=== PATIENT | female | born 1990 | race Two or more races ===

== ENCOUNTER 2024-09-17 08:42 | Emergency (ER) | payer MEDICAID, SELFPAY ==
[2024-09-17 08:43] VITALS: BMI 29.1
[2024-09-17 08:58] VITALS: BP 117/78; PULSE 79; RESP 18; TEMP 36.8; O2SAT 99
--- NOTE | 2024-09-17 09:01 | XR_ITS ---
Examination: CT abdomen and pelvis without contrast. Coronal 3-D reconstructions. Sagittal 2-D reconstructions. Date and time of exam:September 17, 2024 1343 hours INDICATIONS: Bilateral flank pain nausea vomiting 3 days CTDI: vol (mGy): 9.77 DLP: (mGycm): 584 Technique: Axial images of the abdomen have been obtained, 3 mm slice thickness Intravenous contrast material has not been administered. Low dose protocols were performed. One or more of the following dose reduction techniques were used; automated exposure control, adjustment of the mA and/or KV according to patient size, use of iterative reconstruction technique. Findings: No focal liver or splenic lesions Absent gallbladder No pancreatic mass Tiny 1 to 2 mm bilateral renal calculi No hydronephrosis or ureteral calculi Aorta normal size Absent appendix No bowel obstruction Anteverted uterus No bladder mass or bladder calculi Advanced degenerative disc disease L5-S1 IMPRESSION: Bilateral tiny nonobstructing renal calculi No hydronephrosis or ureteral calculi No bladder mass or bladder calculi
--- NOTE | 2024-09-17 09:02 | PD.EDRME ---
Rapid Medical Screening Exam RME Arrival date/time: 09/17/24 08:42 34-year-old female with a history of a cholecystectomy presents to the emergency room with a chief complaint of bilateral flank pain, right sided upper and lower 10 out of 10 abdominal pain, nausea, diarrhea, vomiting x 4 days I have greeted and performed a focused initial assessment of this patient. A comprehensive ED assessment and evaluation of the patient, analysis of all test results, and completion of the medical decision making process will be conducted by additional ED providers. Chief Complaint: Nausea/Vomiting/Diarrhea Vital signs: Vital Signs Temperature 98.2 F 09/17/24 08:58 Pulse Rate 79 09/17/24 08:58 Respiratory Rate 18 09/17/24 08:58 Blood Pressure 117/78 09/17/24 08:58 Pulse Oximetry (%) 99 09/17/24 08:58 Oxygen Delivery Method Room Air 09/17/24 08:58 Vital signs reviewed by provider: Yes
[2024-09-17] MEDS: MG HYD/AL HYD/SIME (Maalox Reg) SUSP 30 ML UDC PO (09:15)
[2024-09-17] MEDS: ONDANSETRON ODT 4 MG TABRAP PO (09:15)
[2024-09-17 09:36] LABS: Basophils # (Auto) 0.1 Thou/mm3 (0.0-0.2); Basophils % (Auto) 1 % (0-2.5); Eosinophils # (Auto) 0.8 Thou/mm3 (0.0-0.5); Eosinophils % (Auto) 10 % (0-10); Hemoglobin 12.3 g/dL (12.0-16.0); Immature Granulocytes % (Auto) 1 % (0-0); Immature Granulocytes Auto 0.04 Thou/mm3 (0.00-0.00); Lymphocytes # (Auto) 2.7 Thou/mm3 (1.0-4.8); Lymphocytes % (Auto) 36 % (10-50); Mean Corpuscular HGB Conc 33.2 g/dl (31.0-37.0); Mean Corpuscular Hemoglobin 29.6 pg (25.0-35.0); Mean Corpuscular Volume 89 fL (80-100); Monocytes # (Auto) 0.8 Thou/mm3 (0.0-0.8); Monocytes % (Auto) 10 % (0-12); Neutrophils # (Auto) 3.3 Thou/mm3 (1.8-7.7); Neutrophils % (Auto) 43 % (37-80); Nucleated Red Blood Cell % 0 /100 WBC (0); Platelet Count 412 Thou/mm3 (140-440); RDW Standard Deviation 42.7 fL (36.4-46.3); Red Blood Count 4.16 Miln/mm3 (4.00-5.20); White Blood Count 7.7 Thou/mm3 (3.6-11.0)
[2024-09-17 09:59] LABS: Alanine Aminotransferase 11 U/L (10-49); Albumin, Serum 3.9 gm/dL (3.5-5.0); Alkaline Phosphatase 37 U/L (46-116); Anion Gap 6 (7-16); Aspartate Amino Transferase 13 U/L (0-34); BUN/Creatinine Ratio 15 Ratio (12-20); Bilirubin,Total 0.3 mg/dL (0.3-1.2); Blood Urea Nitrogen 9 mg/dL (9-23); Calcium 8.7 mg/dL (8.3-10.6); Calcium (Corrected) 8.8 mg/dL (8.5-10.1); Carbon Dioxide 30.4 mMol/L (20.0-31.0); Chloride 108 mMol/L (98-107); Creatinine (Component) 0.6 mg/dL (0.6-1.3); Estimated Creatinine Clearance 137.6 mL/min (>60); Glucose 86 mg/dL (74-106); Lipase 52 U/L (12-53); Osmolality,Calculated 284 (275-295); Potassium 4.1 mMol/L (3.4-5.1); Sodium 144 mMol/L (136-145); Total Protein 5.9 gm/dL (5.7-8.2); eGFR > 60 See Note
--- NOTE | 2024-09-17 12:16 | PD.EDABDPN ---
ED Abdominal Pain RME/HPI General Chief Complaint: Nausea/Vomiting/Diarrhea Stated complaint: N/V X3DAYS WITH ABD PAIN & BACK PAIN Time seen by provider: 09/17/24 11:22 Arrival date/time: 09/17/24 08:42 This is a case of 34-year-old female with a history of a cholecystectomy presents to the emergency room with a chief complaint of bilateral flank pain, right sided upper and lower 10 out of 10 abdominal pain, nausea, diarrhea, vomiting x 4 days Limitations: no limitations RME / HPI RME / HPI narrative: 09/17/24 08:42 34-year-old female with a history of a cholecystectomy presents to the emergency room with a chief complaint of bilateral flank pain, right sided upper and lower 10 out of 10 abdominal pain, nausea, diarrhea, vomiting x 4 days I have greeted and performed a focused initial assessment of this patient. A comprehensive ED assessment and evaluation of the patient, analysis of all test results, and completion of the medical decision making process will be conducted by additional ED providers. Related Data Previous Rx's ?Medication ?Instructions ?Recorded nitrofurantoin 100 mg PO BID #14 caps 06/02/18 monohydrate/macrocrystals 100 mg capsule (Macrobid) ibuprofen 800 mg tablet 800 mg PO Q8H PRN pain #20 tabs 09/17/24 ondansetron 4 mg disintegrating 4 mg PO Q8H PRN nausea and 09/17/24 tablet vomiting #20 tabs sulfamethoxazole 800 1 tab PO Q12H #20 tabs 09/17/24 mg-trimethoprim 160 mg tablet (Bactrim DS) tamsulosin 0.4 mg capsule (Flomax) 0.4 mg PO QDAY #7 caps 09/17/24 Allergies Allergy/AdvReac Type Severity Reaction Status Date / Time cephalexin Allergy Severe RASH Verified 09/17/24 08:45 Review of Systems Review of Systems Systems Reviewed: All systems reviewed, normal except as documented Constitutional Constitutional: Reports system reviewed and no additional complaints, except as documented and Reports as per HPI Cardiovascular Cardiovascular: Reports system reviewed and no additional complaints, except as documented, Reports as per HPI, Denies chest pain, Denies chest pain with activity and Denies dyspnea Respiratory Respiratory: Reports system reviewed and no additional complaints, except as documented, Reports as per HPI, Denies chest congestion, Denies cough and Denies dyspnea Gastrointestinal Gastrointestinal: Reports system reviewed and no additional complaints, except as documented, Reports as per HPI, Reports abdominal pain, Denies constipation, Denies cramping, Reports diarrhea, Reports nausea and Reports vomiting Genitourinary Genitourinary: Reports system reviewed and no additional complaints, except as documented, Reports as per HPI, Denies dysuria and Denies nocturia Musculoskeletal Musculoskeletal: Reports system reviewed and no additional complaints, except as documented and Reports as per HPI Neurologic Neurologic: Reports system reviewed and no additional complaints, except as documented and Reports as per HPI Past Medical History Past Medical History NEUROLOGIC: Negative Neurological Disorders CARDIAC: Positive Cardiac Disorders and Hypertension; Negative Congestive Heart Failure RESPIRATORY: Positive Asthma and Sleep Apnea; Negative Chronic Obstructive Pulmonary Disease (COPD) GASTROINTESTINAL: Positive Gastrointestinal Disorders and Obesity; Negative Hepatitis or Colorectal Cancer GENITOURINARY: Negative Genitourinary Disorders, Renal Disease or Prostate Cancer REPRODUCTIVE: Negative Breast Cancer or Testicular Cancer MUSCULOSKELETAL: Negative Musculoskeletal Disorders or Bone Cancer ENDOCRINE: Negative Endocrine Disorders, Diabetes Mellitus Type 1 or Diabetes Mellitus Type 2 HEMATOLOGIC: Negative Blood Disorders OTHER HISTORY: Negative Hospitalization, Autoimmune Disease, Down Syndrome, Developmental Delay, Shingles, Falls, Blood Transfusions, Blood Transfusion Reaction, Anesthesia Reactions, Organ Transplant, Chemotherapy, Radiation Therapy, Hyperbaric Therapy, MRSA, VRSA, Vancomycin-Resistant Enterococci, Human Immunodeficiency Virus (HIV), Chicken Pox, Measles, Mumps, Rubella ([place] Measles), Pertussis, Clostridium Difficile, Breast Cancer, Cervical Cancer, Colorectal Cancer, Lung Cancer, Ovarian Cancer, Prostate Cancer or Testicular Cancer Family History FAMILY HISTORY: Positive Family Surgery; Negative Family Cardiac Disorders, Family Cancer or Family Anesthesia Reaction Surgical History SURGICAL: Positive Abdominal Surgery and Section; Negative Organ Transplant Social History SMOKING STATUS: Never smoker SECOND HAND EXPOSURE: No ED Exam General Limitations: Present no limitations General appearance: Present alert and in no apparent distress; Absent appears intoxicated, anxious or lethargic Head Head exam: Present atraumatic, normocephalic and normal inspection Eye Eye exam: Present normal appearance, PERRL and EOMI ENT ENT exam: Present normal exam, normal oropharynx and mucous membranes moist Neck Neck exam: Present normal inspection, full ROM and trachea midline Chest Chest inspection: Present normal inspection and symmetric chest wall rise Respiratory Respiratory exam: Present normal lung sounds bilaterally; Absent respiratory distress, wheezes, stridor or prolonged expiratory phase Cardiovascular Cardiovascular exam: Present regular rate, normal rhythm and normal heart sounds; Absent systolic murmur or diastolic murmur Abdominal Exam Abdominal exam: Present soft and normal bowel sounds; Absent distention, guarding, rebound, rigidity, diminished bowel sounds, hyperactive bowel sounds, hypoactive bowel sounds, organomegaly, trauma, incision, psoas sign, obturator sign, heel tap sign, Jefferson's sign, Rovsing's sign, tenderness at McBurney's Point, ascites, mass, bruit, pulsatile mass, hernia, scar or other Abdominal tenderness: Present RUQ, LUQ and mild External exam: Present normal external exam and other (no cva tenderness) Extremities Exam Extremities exam: Present normal inspection and full ROM Back Exam Back exam: Present normal inspection and full ROM Neurological Exam Neurological exam: Present alert, oriented X3, CN II-XII intact, normal gait and reflexes normal; Absent motor sensory deficit Psychiatric Psychiatric exam: Present normal affect and normal mood Skin Skin exam: Present warm, dry, intact and normal color Course Quality Measures none Orders Category Date Time Status IV [Insert IV] NOW Care 09/17/24 13:[address] abdomen pelvis wo con Stat Exams 09/17/24 09:01 Completed CBC Stat Lab 09/17/24 09:19 Completed CMP [Comprehensive Metabolic Panel] Stat Lab 09/17/24 09:19 Completed Drug Screen,Urine Stat Lab 09/17/24 13:01 Completed HCG Qualitative,Urine Stat Lab 09/17/24 13:01 Completed Lipase Stat Lab 09/17/24 09:19 Completed UA [Urinalysis] Stat Lab 09/17/24 13:01 Completed Urine Culture Stat Lab 09/17/24 13:01 Received HYDROcodone*/APAP 5/325 [Baxter 5/325] Med 09/17/24 09:02 Discontinued 1 tab PO X1 ONE Ketorolac Inj [Toradol Inj] Med 09/17/24 15:10 Discontinued 30 mg IVP X1 ONE Morphine Inj Med 09/17/24 13:54 Active 4 mg IVP Q1H PRN Morphine Inj Med 09/17/24 11:37 Discontinued 5 mg IM X1 ONE Ondansetron Inj [Zofran Inj] Med 09/17/24 11:37 Discontinued 4 mg IVP X1 ONE Ondansetron Odt [Zofran Odt] Med 09/17/24 09:02 Discontinued 4 mg PO X1 ONE Ringers Lactated 500 ml [Lactated Ringers] 500 ml Med 09/17/24 11:37 Discontinued IV 999 mls/hr mg Hyd/Al Hyd/Tamra Susp [Maalox Susp] Med 09/17/24 09:02 Discontinued 30 ml PO X1 ONE Vital Signs Vital signs: Vital Signs Temperature 98.2 F 09/17/24 08:58 Pulse Rate 79 09/17/24 08:58 Respiratory Rate 18 09/17/24 08:58 Blood Pressure 117/78 09/17/24 08:58 Pulse Oximetry (%) 99 09/17/24 08:58 Oxygen Delivery Method Room Air 09/17/24 08:58 Oxygen saturation room air wnl Abdominal Pain MDM MDM Narrative MDM Narrative:: This is a case of 34-year-old female with a history of a cholecystectomy presents to the emergency room with a chief complaint of bilateral flank pain, right sided upper and lower 10 out of 10 abdominal pain, nausea, diarrhea, vomiting x 4 days Physical examination patient is awake alert oriented not in distress nontoxic looking well-hydrated well-nourished with excellent skin turgor vital signs stable BP stable not tachycardic not tachypneic afebrile and nonhypoxic Abdominal exam is benign mild tenderness in the right upper and left upper quadrant no guarding no rebound no rigidity negative CVA tenderness negative psoas 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 Rovsing's negative McBurney's negative Jefferson sign negative CVA tenderness Patient blood test showed no leukocytosis no anemia kidney and liver function is normal no electrolyte imbalance lipase normal urinalysis showed WBC in the urine thus patient will be treated as urinary tract infection CT scan showed a small stone on the kidney suggestive of kidney stone nonobstructive At this point I do not think patient is having sepsis nor dehydration patient was given a bolus of normal saline morphine and Toradol for pain and Zofran for vomiting patient was reassessed abdominal exam is benign nonsurgical patient verbalized the improvement of symptoms no recurrence of vomiting I discussed with the patient the importance to see a urologist for further evaluation and treatment of kidney stone at this point the kidney stone is not infected WBC is normal Patient was discharged with Bactrim for UTI ibuprofen for pain and Flomax for kidney stone and Zofran for vomiting Patient was discharged with comfortable condition walking with stable gait. Patient verbalized no further complains explained diagnosis and answered patient question. Patient is comfortable with the proposed management plan including the need to follow up with his/her primary care physician and any specialist if applicable Discussed patient for any urgent condition or worsening sx, He/She needed to go to emergency room immediately or call 911. Patient acknowledge the responsibility to follow up as instructed and to monitor her/his symptoms. For any persistence of the symptoms for more than 3-5 days return precaution advised. Discussed the result of the test and was given printed discharge instruction Patient data External records reviewed:: [facility] previous records Clinical information provided by:: patient Social determinants that could affect healthcare access:: none Patient has the following chronic illnesses:: none How is presenting disease/condition affected by chronic disease/condition?: no chronic disease Evaluation data The following diagnostics were reviewed and interpreted by me:: lab results and radiology exam(s) Lab and/or radiology exams considered but not ordered:: reveiwed Interpretation Summary: reviewed Medications / Prescriptions Medications or Prescriptions considered but not ordered:: given Medication administrations:: Medication Administration History Morphine Sulfate (Morphine Sulf Inj 10 Mg/Ml Vial) 4 mg IVP Q1H PRN PRN Reason: ABDOMINAL CRAMPING Last Admin: 09/17/24 14:00 Dose: 4 mg Documented By: RACHEL Discontinued Medications Hydrocodone Bitart/Acetaminophen (Hydrocodone/Apap 5/325 Tablet) 1 tab PO X1 ONE Stop: 09/17/24 09:03 Last Admin: 09/17/24 09:23 Dose: Not Given Documented By: HENNA Non-Admin Reason: Patient Refused Al Hydrox/Mg Hydrox/Simethicone (Mg Hyd/Al Hyd/Tamra (Maalox Reg) Susp 30 Ml Udc) 30 ml PO X1 ONE Stop: 09/17/24 09:03 Last Admin: 09/17/24 09:15 Dose: 30 ml Documented By: HENNA Lactated Ringer's (Lactated Ringers) 500 mls @ 999 mls/hr IV .Q31M ONE Stop: 09/17/24 12:07 Last Infusion: 09/17/24 15:06 Dose: Infused Documented By: Admin: 09/17/24 14:21 Dose: 999 mls/hr Documented By: RACHEL Comments: unable to scan . no 500 ml bag available per distribution Ketorolac Tromethamine (Ketorolac Inj 30 Mg/Ml Vial) 30 mg IVP X1 ONE Stop: 09/17/24 15:11 Morphine Sulfate (Morphine Sulf Inj 10 Mg/Ml Vial) 5 mg IM X1 ONE Stop: 09/17/24 11:38 Last Admin: 09/17/24 14:47 Dose: Not Given Documented By: RACHEL Non-Admin Reason: Cancelled by Provider Ondansetron HCl (Ondansetron Odt 4 Mg Tabrap) 4 mg PO X1 ONE; Protocol Stop: 09/17/24 09:03 Last Admin: 09/17/24 09:15 Dose: 4 mg Documented By: HENNA Ondansetron HCl (Ondansetron Inj 2 Mg/Ml Inj 2 Ml) 4 mg IVP X1 ONE; Protocol Stop: 09/17/24 11:38 Last Admin: 09/17/24 14:00 Dose: 4 mg Documented By: RACHEL given Consultations Consultation(s) initiated? (list below): No Diagnosis Differential diagnosis abdominal pain: abdominal pain, acute appendicitis, calculus of kidney, constipation, diverticulitis and gastroenteritis Most likely diagnosis given after review of the tests above:: kidney stone Admission Indicated Admission indicated?: not indicated Explain why admission is indicated or not indicated:: not indicated Admission Request Was there a request for admission?: No Disposition Plan Disposition Plan: Discharge Discharge Attestation Discharge Attestation: The patient and all family members were given an opportunity to ask questions and understood the discharge instructions. Discharge instructions specifically effects, indications for sooner follow up or return to the emergency department, and the expected course of current diagnosis. Patient condition: Stable Discharge Plan Plan Patient Disposition: HOME (Self Care) Prescriptions/Referrals Prescriptions/Med Rec: New sulfamethoxazole-trimethoprim [Bactrim DS] 800-160 mg tablet 1 tab PO Q12H Qty: 20 0RF tamsulosin [Flomax] 0.4 mg capsule 0.4 mg PO QDAY Qty: 7 0RF ibuprofen 800 mg tablet 800 mg PO Q8H PRN (Reason: pain) Qty: 20 0RF ondansetron 4 mg tablet,disintegrating 4 mg PO Q8H PRN (Reason: nausea and vomiting) Qty: 20 0RF No Action nitrofurantoin monohyd/m-cryst [Macrobid] 100 mg capsule 100 mg PO BID Qty: 14 0RF Rx Instructions: must administer with a meal/food Referrals: Jack Glover MD [Physician] - In 1 week (for further evaluation and tx of kidney stones) Alphonso Robins [Primary Care Provider] - In 1 week Problem List Clinical Impression: Nephrolithiasis, Urinary tract infection Patient/Caregiver Discharge Instructions Education Materials: Urinary Tract Infections in Women, Identifying Kidney Stones Additional Instructions: Follow-up with your primary care physician in 2 days for reevaluation and to be referred to urologist for further evaluation and treatment of kidney stone increase water intake keep hydrated finish the course of antibiotic worsening symptoms or any emergent concern or recurrence of the symptoms to return to the emergency room immediately or call [phone] Print Language: Wallisian Stand Alone Forms: Isabel Award Info., Patient Portal Info Letter PA/REGINA Supervising Physician PA/REGINA Supervising Physician: dr powers
[2024-09-17 13:27] LABS: Collection Type, Urine Clean Catch
[2024-09-17 13:37] LABS: HCG Qualitative,Urine Negative
[2024-09-17 13:41] LABS: Amorphous Crystals,Urine Present (Absent); Bacteria,Urine Rare; Bilirubin,Urine Negative (Negative); Blood,Urine Negative (Negative); Color,Urine Lt-Yellow (Lt Yel-Yel); Glucose, Urine Negative (Negative); Ketones,Urine Negative (Negative); Leukocyte Esterase,Urine Positive (Negative); Nitrite,Urine Negative (Negative); Protein,Urine Negative (Neg - Trace); RBC,Urine 5 /hpf (0-3); Specific Gravity,Urine 1.029 (1.001-1.035); Squamous Epithelial Cell,Urine 28 /hpf (0-5); Urobilinogen,Urine Negative mg/dL (0.0-1.0); WBC,Urine 6 /hpf (0-5)
[2024-09-17] MEDS: MORPHINE SULF INJ 10 MG/ML VIAL 4 MG IVP (14:00)
[2024-09-17] MEDS: ONDANSETRON INJ 2 MG/ML INJ 2 ML 4 MG IVP (14:00)
[2024-09-17 14:04] LABS: Clarity,Urine Hazy (Clear/Hazy)
[2024-09-17] MEDS: RINGERS LACTATED 500 ML 500 ML 999 ML IV (14:21)
[2024-09-17 14:35] VITALS: BP 111/71; PULSE 70; RESP 18; TEMP 36.7; O2SAT 98
[2024-09-17 15:02] LABS: Amphetamine/Methamp Scrn,U Negative (Negative); Barbiturate Screen,Urine Negative (Negative); Benzodiazepines Screen,Urine Negative (Negative); Benzoylecgonine Screen, Ur Negative (Negative); Fentanyl Screen,Urine Negative (Negative); Opiate Screen,Urine Positive (Negative); THC Screen,Urine Negative (Negative)
[2024-09-17] MEDS: KETOROLAC INJ 30 MG/ML VIAL IVP (15:23)
[2024-09-17 15:33] VITALS: BP 120/78; PULSE 78; RESP 18; TEMP 36.7; O2SAT 99
== END 2024-09-17 15:35 | disposition home or self-care (01) ==
PROVIDERS: Nurse Practitioner Family; Emergency Provider Emergency Medicine; PCP Family Medicine
DX: N39.0 Urinary tract infection, site not specified (principal); J45.909 Unspecified asthma, uncomplicated; Z90.49 Acquired absence of other specified parts of digestive tract
CPT/HCPCS: 36415; 74176; 80053; 80307; 81001; 81025; 83690; 85025; 87086; 96361; 96374; 96375; 99284; J1885; J2270; J2405; J7120; Q0162; A9270

== ENCOUNTER 2024-09-26 06:47 | Emergency (ER) | payer MEDICAID, SELFPAY ==
[2024-09-26 06:48] VITALS: BMI 28.3
[2024-09-26 06:59] VITALS: BP 117/76; PULSE 89; RESP 18; TEMP 36.7; O2SAT 99; BMI 30.9
--- NOTE | 2024-09-26 07:08 | PD.EDRME ---
Rapid Medical Screening Exam [facility] Arrival date/time: 09/26/24 06:47 34-year-old female with no known medical history presents to the emergency room with a chief complaint of right flank pain, nausea, bilateral lower abdominal pain x 3 days. Patient states she was seen here and discharged with a UTI and kidney stones 2 weeks ago. She has taken medication and her symptoms have not gone away. I have greeted and performed a focused initial assessment of this patient. A comprehensive ED assessment and evaluation of the patient, analysis of all test results, and completion of the medical decision making process will be conducted by additional ED providers. Chief Complaint: Abdominal Pain Vital signs: Vital Signs Temperature 98.0 F 09/26/24 06:59 Pulse Rate 89 09/26/24 06:59 Respiratory Rate 18 09/26/24 06:59 Blood Pressure 117/76 09/26/24 06:59 Pulse Oximetry (%) 99 09/26/24 06:59 Oxygen Delivery Method Room Air 09/26/24 06:59 Vital signs reviewed by provider: Yes
--- NOTE | 2024-09-26 07:55 | EDNOTE_ITS ---
ED General RME/HPI General Chief complaint: Abdominal Pain Stated complaint: LOWER ABD AND BACK PAIN, HISTORY KIDNEY STONES Time Seen by Provider: 09/26/24 07:16 Arrival date/time: 09/26/24 06:47 RME / HPI RME / HPI narrative: 09/26/24 06:47 34-year-old female with no known medical history presents to the emergency room with a chief complaint of right flank pain, nausea, bilateral lower abdominal pain x 3 days. Patient states she was seen here and discharged with a UTI and kidney stones 2 weeks ago. She has taken medication and her symptoms have not gone away. I have greeted and performed a focused initial assessment of this patient. A comprehensive ED assessment and evaluation of the patient, analysis of all test results, and completion of the medical decision making process will be conducted by additional ED providers. DR. BRIAN MARIE ED EVALUATION: 34 year old female presents to the Emergency Department with complaint of everything hurts , her upper back pain, mid back pain, lower back pain, and abdominal pain; she also has nausea and vomiting. She states she takes [place] and a muscle relaxer, unknown name. No diarrhea or other symptoms reported at this time. Last discharged here on 09/17/24 for nephrolithiasis. We discussed about her findings then and she still insisted and checking her again today. PMHx: Hypertension, asthma, cholecystectomy, and section. Social Hx: Patient denies any tobacco, alcohol, or substance use. Related Data Previous Rx's ?Medication ?Instructions ?Recorded nitrofurantoin 100 mg PO BID #14 caps 06/02 monohydrate/macrocrystals 100 mg capsule (Macrobid) ibuprofen 800 mg tablet 800 mg PO Q8H PRN pain #20 t abs 09/17/24 ondansetron 4 mg disintegrating 4 mg PO Q8H PRN nausea and 09/17/24 tablet vomiting #20 tabs sulfamethoxazole 800 1 tab PO Q12H #20 tabs 09/17 mg-trimethoprim 160 mg tablet (Bactrim DS) tamsulosin 0.4 mg capsule (Flomax) 0.4 mg PO QDAY #7 c aps 09/17/24 Allergies Allergy/AdvReac Type Severity Reaction Status Date / Time cephalexin Allergy Severe RASH Verified 09/26/24 06:48 Review of Systems Review of Systems Systems Reviewed: All systems reviewed, normal except as documented Past Medical History Past Medical History CARDIAC: Positive Cardiac Disorders and Hypertension RESPIRATORY: Positive Asthma and Sleep Apnea GASTROINTESTINAL: Positive Gastrointestinal Disorders and Obesity Family History FAMILY HISTORY: Positive Family Surgery Surgical History SURGICAL: Positive Abdominal Surgery and Section Social History SMOKING STATUS: Never smoker SECOND HAND EXPOSURE: No SUBSTANCE USE: does not use ALCOHOL: Never ED Exam Narrative Physical exam: GENERAL APPEARANCE: AxOx4, generally well-appearing, no acute distress. HEENT: NC, AT. MMM. EOMI, clear conjunctiva, oropharynx clear. NECK: Supple without lymphadenopathy. No stiffness or restricted ROM. HEART: Normal rate and regular rhythm, normal S1/S1, no m/r/g LUNGS: CTAB, moving air well. No crackles or wheezes are heard. ABDOMEN: Soft, nontender, nondistended with good bowel sounds heard. BACK: No midline C/T/L spine pain or deformity, No CVAT, no obvious deformity. EXTREMITIES: Without cyanosis, clubbing or edema. MUSCULOSKELETAL: FROM of all major joints, no chest tenderness NEUROLOGICAL: Grossly nonfocal. Alert and oriented, moving all 4 extremities. CN not formally tested but appear grossly intact. Observed to ambulate with normal gait. Skin: Warm and dry without any rash. Course Quality Measures none Orders Category Date Time Status CT abdomen pelvis wo con Stat Exams 09/26/24 08:19 Completed CBC Stat Lab 09/26/24 09:02 Completed CMP [Comprehensive Metabolic Panel] Stat Lab 09/26/24 09:02 Completed Drug Screen,Urine Stat Lab 09/26/24 09:56 Completed HCG Qualitative,Urine Stat Lab 09/26/24 09:56 Completed Urinalysis Stat Lab 09/26/24 09:56 Completed DiphenhydrAMINE INJ [Benadryl Inj] Med 09/26/24 07:59 Discontinued 50 mg IM X1 ONE DiphenhydrAMINE INJ [Benadryl Inj] Med 09/26/24 12:05 Discontinued 50 mg IM X1 ONE Ketorolac Inj [Toradol Inj] Med 09/26/24 07:57 Discontinued 30 mg IM X1 ONE Ketorolac Inj [Toradol Inj] Med 09/26/24 12:06 Discontinued 30 mg IM X1 ONE Metoclopramide Inj [Reglan Inj] Med 09/26/24 08:00 Discontinued 10 mg IM X1 ONE Metoclopramide Inj [Reglan Inj] Med 09/26/24 12:05 Discontinued 10 mg IM X1 ONE Vital Signs Vital signs: Vital Signs Temperature 98.0 F 09/26/24 06:59 Pulse Rate 89 09/26/24 06:59 Respiratory Rate 18 09/26/24 06:59 Blood Pressure 117/76 09/26/24 06:59 Pulse Oximetry (%) 99 09/26/24 06:59 Oxygen Delivery Method Room Air 09/26/24 06:59 Discharge Plan Plan Patient Disposition: HOME (Self Care) Prescriptions/Referrals Prescriptions/Med Rec: No Action nitrofurantoin monohyd/m-cryst [Macrobid] 100 mg capsule 100 mg PO BID Qty: 14 0RF Rx Instructions: must administer with a meal/food sulfamethoxazole-trimethoprim [Bactrim DS] 800-160 mg tablet 1 tab PO Q12H Qty: 20 0RF tamsulosin [Flomax] 0.4 mg capsule 0.4 mg PO QDAY Qty: 7 0RF ibuprofen 800 mg tablet 800 mg PO Q8H PRN (Reason: pain) Qty: 20 0RF ondansetron 4 mg tablet,disintegrating 4 mg PO Q8H PRN (Reason: nausea and vomiting) Qty: 20 0RF Referrals: Alphonso Giordano [Primary Care Provider] - In 1 week Problem List Clinical Impression: Abdominal pain Patient/Caregiver Discharge Instructions Education Materials: ED Abdominal Pain Unkn Cause Fem Additional Instructions: It can be useful oftentimes to stop using marijuana completely to see if your symptoms improved. Follow-up with your primary care doctor in 2 to 3 days for recheck Print Language: Austrian Stand Alone Forms: Isabel Award Info., Patient Portal Info Letter MDM Narrative [facility] hospital course: IRandi am scribing for and in the presence of Dr. Bahena. Clinical Information Provided by patient Medical Records Reviewed [facility] Reviewed last ED visit dated 09/17/24 discharged with the following: Nephrolithiasis. Meds/Rx Considered, not Ordered None Labs/Rad/Tests considered, not Ordered None Chronic Illness/Social Conditions Add or document further as needed: PMHx: Hypertension, asthma, cholecystectomy, and section. Social Hx: Patient denies any tobacco, alcohol, or substance use. Imaging Radiology reports / interpretation(s): Procedure(s): CT abdomen pelvis wo con Accession Number(s): [id number] cc: Allan Bahena MD; Gagan Massey MD; MARCUS GIORDANO Examination: CT abdomen and pelvis without contrast. Coronal 3-D reconstructions. Sagittal 2-D reconstructions. Date and time of exam:September 26, 2024 1111 hours Comparison September 17, 2024 INDICATIONS: Intermittent abdominal pain beginning 2 weeks ago, history gallstones , History kidney stones CTDI: vol (mGy): 10.6 DLP: (mGycm): 619 Technique: Axial images of the abdomen have been obtained, 3 mm slice thickness Intravenous contrast material has not been administered. Low dose protocols were performed. One or more of the following dose reduction techniques were used; automated exposure control, adjustment of the mA and/or KV according to patient size, use of iterative reconstruction technique. Findings: No focal liver or splenic lesion Absent gallbladder No pancreatic mass 1 mm right renal calculi, no hydronephrosis or ureteral calculi Aorta normal size No bowel obstruction Absent appendix No diverticulitis Anteverted uterus IMPRESSION: Tiny nonobstructing right renal calculi, no hydronephrosis or ureteral calculi No bowel obstruction or diverticulitis Dictated By: Gagan Massey MD Medication Administration(s) Medication Administration History Discontinued Medications Diphenhydramine HCl (Diphenhydramine Inj 50 Mg/Ml Vial) 50 mg IM X1 ONE Stop: 09/26/24 08:00 Last Admin: 09/26/24 10:32 Dose: Not Given Documented By: ЕКАТЕРИНА Non-Admin Reason: Patient Refused Diphenhydramine HCl (Diphenhydramine Inj 50 Mg/Ml Vial) 50 mg IM X1 ONE Stop: 09/26/24 12:06 Last Admin: 09/26/24 12:19 Dose: Not Given Documented By: OA Non-Admin Reason: Patient Refused Ketorolac Tromethamine (Ketorolac Inj 60 Mg/2 Ml Vial) 30 mg IM X1 ONE Stop: 09/26/24 07:58 Last Admin: 09/26/24 10:31 Dose: Not Given Documented By: ЕКАТЕРИНА Non-Admin Reason: Patient Refused Ketorolac Tromethamine (Ketorolac Inj 60 Mg/2 Ml Vial) 30 mg IM X1 ONE Stop: 09/26/24 12:07 Last Admin: 09/26/24 12:19 Dose: 30 mg Documented By: FLORENCE Metoclopramide HCl (Metoclopramide Inj 5 Mg/Ml Vial 2 Ml) 10 mg IM X1 ONE; Protocol Stop: 09/26/24 08:01 Last Admin: 09/26/24 10:33 Dose: Not Given Documented By: ЕКАТЕРИНА Non-Admin Reason: Patient Refused Comments: pt refusing medications Metoclopramide HCl (Metoclopramide Inj 5 Mg/Ml Vial 2 Ml) 10 mg IM X1 ONE; Protocol Stop: 09/26/24 12:06 Last Admin: 09/26/24 12:19 Dose: 10 mg Documented By: FLORENCE Diagnosis Differential diagnosis: kidney stones, muscle spasm, pancreatitis, gastroenteritis Most likely dx, and/or detailed dx discussion: Abdominal pain Dispositon Disposition: Discharge Home
--- NOTE | 2024-09-26 08:19 | XR_ITS ---
Examination: CT abdomen and pelvis without contrast. Coronal 3-D reconstructions. Sagittal 2-D reconstructions. Date and time of exam:September 26, 2024 1111 hours Comparison September 17, 2024 INDICATIONS: Intermittent abdominal pain beginning 2 weeks ago, history gallstones , History kidney stones CTDI: vol (mGy): 10.6 DLP: (mGycm): 619 Technique: Axial images of the abdomen have been obtained, 3 mm slice thickness Intravenous contrast material has not been administered. Low dose protocols were performed. One or more of the following dose reduction techniques were used; automated exposure control, adjustment of the mA and/or KV according to patient size, use of iterative reconstruction technique. Findings: No focal liver or splenic lesion Absent gallbladder No pancreatic mass 1 mm right renal calculi, no hydronephrosis or ureteral calculi Aorta normal size No bowel obstruction Absent appendix No diverticulitis Anteverted uterus IMPRESSION: Tiny nonobstructing right renal calculi, no hydronephrosis or ureteral calculi No bowel obstruction or diverticulitis
[2024-09-26 09:19] LABS: Basophils # (Auto) 0.1 Thou/mm3 (0.0-0.2); Basophils % (Auto) 1 % (0-2.5); Eosinophils # (Auto) 0.4 Thou/mm3 (0.0-0.5); Eosinophils % (Auto) 4 % (0-10); Hematocrit 39.6 % (36.0-46.0); Hemoglobin 13.6 g/dL (12.0-16.0); Immature Granulocytes % (Auto) 0 % (0-0); Immature Granulocytes Auto 0.02 Thou/mm3 (0.00-0.00); Lymphocytes # (Auto) 4.1 Thou/mm3 (1.0-4.8); Lymphocytes % (Auto) 45 % (10-50); Mean Corpuscular HGB Conc 34.3 g/dl (31.0-37.0); Mean Corpuscular Volume 87 fL (80-100); Monocytes # (Auto) 0.4 Thou/mm3 (0.0-0.8); Monocytes % (Auto) 5 % (0-12); Neutrophils # (Auto) 4.1 Thou/mm3 (1.8-7.7); Neutrophils % (Auto) 45 % (37-80); Nucleated Red Blood Cell % 0 /100 WBC (0); Platelet Count 463 Thou/mm3 (140-440); RDW Standard Deviation 42.5 fL (36.4-46.3); Red Blood Count 4.53 Miln/mm3 (4.00-5.20); White Blood Count 9.2 Thou/mm3 (3.6-11.0)
--- NOTE | 2024-09-26 09:20 | PC.NURSE ---
PT REQUESTING PAIN MEDS AND PT WAS MADE AWARE THAT I WILL GIVE HER THE MEDICATION, AND SHE WAS MADE AWARE THAT THE PAIN MEDS WILL BE IM SHOTS. PT REFUSED AND STATED THAT SHE WANTS THE PAIN MEDS IV BECAUSE IM MEIDCATION DOES NOT DO NOTHING TO ME. PT MADE AWARE THAT SHE WILL NEED TO WAIT FOR A ROOM UNTIL SHE CAN IV MEDS AND THAT I WILL LET THE DOCTOR KNOW ABOUT THE IV MEDS. PT ACKNOWLEDGED.
[2024-09-26 09:32] LABS: Alanine Aminotransferase 10 U/L (10-49); Albumin, Serum 4.6 gm/dL (3.5-5.0); Albumin/Globulin Ratio 1.9 (1.2-2.2); Alkaline Phosphatase 42 U/L (46-116); Anion Gap 10 (7-16); Aspartate Amino Transferase 14 U/L (0-34); BUN/Creatinine Ratio 14 Ratio (12-20); Bilirubin,Total 0.6 mg/dL (0.3-1.2); Blood Urea Nitrogen 13 mg/dL (9-23); Calcium 9.9 mg/dL (8.3-10.6); Calcium (Corrected) 9.9 mg/dL (8.5-10.1); Carbon Dioxide 25.9 mMol/L (20.0-31.0); Chloride 104 mMol/L (98-107); Creatinine (Component) 0.9 mg/dL (0.6-1.3); Globulin 2.4 gm/dL (2.3-3.5); Glucose 96 mg/dL (74-106); Osmolality,Calculated 279 (275-295); Potassium 3.6 mMol/L (3.4-5.1); Sodium 140 mMol/L (136-145); eGFR > 60 See Note
[2024-09-26 10:26] LABS: Bilirubin,Urine Negative (Negative); Blood,Urine Trace (Negative); Collection Type, Urine Clean Catch; Color,Urine Yellow (Lt Yel-Yel); Glucose, Urine Negative (Negative); Hyaline Casts,Urine < 1 /hpf (0-1); Ketones,Urine Negative (Negative); Leukocyte Esterase,Urine Positive (Negative); Nitrite,Urine Negative (Negative); Protein,Urine 1+ (Neg - Trace); RBC,Urine 10 /hpf (0-3); Specific Gravity,Urine 1.033 (1.001-1.035); Squamous Epithelial Cell,Urine 35 /hpf (0-5); WBC,Urine 66 /hpf (0-5)
[2024-09-26 10:27] LABS: Amphetamine/Methamp Scrn,U Negative (Negative); Barbiturate Screen,Urine Negative (Negative); Benzodiazepines Screen,Urine Negative (Negative); Benzoylecgonine Screen, Ur Negative (Negative); Fentanyl Screen,Urine Negative (Negative); Opiate Screen,Urine Positive (Negative); THC Screen,Urine Positive (Negative)
--- NOTE | 2024-09-26 10:31 | PC.NURSE ---
PT WANTING TO TALKW ITH CHARGE NURSE. BROUGHT PT INTO REGISTRATION AREA TO TALK WITH PT. PT STATES I'VE BEEN HERE SINCE 629 AND I'M IN A LOT OF PAIN. INFORMED PT THAT SHE WAS OFFERED A PAIN SHOT AND REFUSED IT TELLING THE OTHER NURSE SHE WANTED IV MEDICATION. INFORMED PT THAT IF SHE IS NOT WANTING THE PAIN SHOT, THEN SHE WILL NEED TO WAIT FOR AN E.D. ROOM TO BECOME AVAILABLE FOR IV MEDICATION. INFORMED PT THAT NURSE DOES NOT KNOW HOW LONG IT WILL TAKE FOR A ROOM TO BE AVAILABLE. OFFERED PT PAIN SHOT AGAIN AND PT STATES I'LL WAIT SO I CAN HAVE IV MEDICATION.
[2024-09-26 10:32] LABS: Clarity,Urine Hazy (Clear/Hazy)
[2024-09-26 10:38] LABS: HCG Qualitative,Urine Negative
[2024-09-26 11:53] VITALS: BP 124/75; PULSE 72; RESP 16; O2SAT 99
[2024-09-26] MEDS: METOCLOPRAMIDE INJ 5 MG/ML VIAL 2 ML 10 MG IM (12:19)
[2024-09-26] MEDS: KETOROLAC INJ 60 MG/2 ML VIAL 30 MG IM (12:19)
== END 2024-09-26 12:23 | disposition home or self-care (01) ==
PROVIDERS: Emergency Provider Emergency Medicine; PCP Family Medicine
DX: N20.0 Calculus of kidney (principal); I10 Essential (primary) hypertension; J45.909 Unspecified asthma, uncomplicated; Z90.49 Acquired absence of other specified parts of digestive tract
CPT/HCPCS: 36415; 74176; 80053; 80307; 81001; 81025; 83690; 85025; 87086; 96372; 99284; J1885; J2765

== ENCOUNTER 2024-12-24 12:25 | Emergency (ER) | payer MEDICAID, SELFPAY ==
[2024-12-24 13:04] VITALS: BP 125/76; PULSE 92; RESP 18; TEMP 37; O2SAT 95
--- NOTE | 2024-12-24 13:06 | XR_ITS ---
Examination: CT abdomen and pelvis without contrast. Coronal 3-D reconstructions. Sagittal 2-D reconstructions. Date and time of exam:December 24, 2024 1607 hours INDICATIONS: Right flank pain nausea vomiting fever beginning 6 days ago, history right renal calculi September 26, 2024 CTDI: vol (mGy): 8.97 DLP: (mGycm): 543 Technique: Axial images of the abdomen have been obtained, 3 mm slice thickness Intravenous contrast material has not been administered. Low dose protocols were performed. One or more of the following dose reduction techniques were used; automated exposure control, adjustment of the mA and/or KV according to patient size, use of iterative reconstruction technique. Findings: No focal liver or splenic lesions Absent gallbladder No pancreatic or adrenal mass. No current renal calculi, no hydronephrosis or ureteral calculi Aorta normal size. No bowel obstruction Absent appendix No pelvic mass Contracted urinary bladder Advanced degenerative disc disease L5-S1 IMPRESSION: No renal or ureteral calculi, no hydronephrosis Absent appendix No bladder mass or bladder calculi
--- NOTE | 2024-12-24 13:07 | EDRME_ITS ---
Rapid Medical Screening Exam RME Arrival date/time: 12/24/24 12:25 34-year-old female with history of a gastric sleeve presents to the emergency room with a chief complaint of lower abdominal pain, blood in the stool, nausea x 1 week I have greeted and performed a focused initial assessment of this patient. A co mprehensive ED assessment and evaluation of the patient, analysis of all test results, and completion of the medical decision making process will be conducted by additional ED providers. Chief Complaint: Fever Vital signs: Vital Signs Temperature 98.6 F 12/24/24 13:04 Pulse Rate 92 12/24/24 13:04 Respiratory Rate 18 12/24/24 13:04 Blood Pressure 125/76 12/24/24 13:04 Pulse Oximetry (%) 95 12/24/24 13:04 Oxygen Delivery Method Room Air 12/24/24 13:04 Vital signs reviewed by provider: Yes
[2024-12-24] MEDS: HYDROcodone/APAP 5/325 TABLET 1 TAB PO (13:12)
[2024-12-24] MEDS: ONDANSETRON ODT 4 MG TABRAP PO (13:12)
[2024-12-24 13:34] LABS: Basophils # (Auto) 0.0 Thou/mm3 (0.0-0.2); Basophils % (Auto) 1 % (0-2.5); Eosinophils # (Auto) 0.6 Thou/mm3 (0.0-0.5); Eosinophils % (Auto) 8 % (0-10); Hematocrit 38.2 % (36.0-46.0); Hemoglobin 12.7 g/dL (12.0-16.0); Immature Granulocytes Auto 0.02 Thou/mm3 (0.00-0.00); Lymphocytes # (Auto) 2.0 Thou/mm3 (1.0-4.8); Lymphocytes % (Auto) 27 % (10-50); Mean Corpuscular HGB Conc 33.2 g/dl (31.0-37.0); Mean Corpuscular Hemoglobin 30.0 pg (25.0-35.0); Mean Corpuscular Volume 90 fL (80-100); Monocytes # (Auto) 0.5 Thou/mm3 (0.0-0.8); Monocytes % (Auto) 8 % (0-12); Neutrophils # (Auto) 4.1 Thou/mm3 (1.8-7.7); Neutrophils % (Auto) 57 % (37-80); Nucleated Red Blood Cell # 0.00 Thou/mm3 (0.00-0.00); Nucleated Red Blood Cell % 0 /100 WBC (0); Platelet Count 423 Thou/mm3 (140-440); RDW Standard Deviation 43.8 fL (36.4-46.3); Red Blood Count 4.24 Miln/mm3 (4.00-5.20); White Blood Count 7.2 Thou/mm3 (3.6-11.0)
[2024-12-24 13:50] LABS: INR 0.9 (0.9-1.3); Partial Thromboplastin Time 23.5 Seconds (22.0-36.0); Prothrombin Time 10.3 Seconds (9.0-12.2)
[2024-12-24 14:05] LABS: Alanine Aminotransferase < 7 U/L (10-49); Albumin, Serum 4.1 gm/dL (3.5-5.0); Albumin/Globulin Ratio 1.7 (1.2-2.2); Alkaline Phosphatase 44 U/L (46-116); Anion Gap 9 (7-16); Aspartate Amino Transferase 11 U/L (0-34); BUN/Creatinine Ratio 12 Ratio (12-20); Bilirubin,Total 0.6 mg/dL (0.3-1.2); Blood Urea Nitrogen 7 mg/dL (9-23); Calcium 9.8 mg/dL (8.3-10.6); Calcium (Corrected) 9.8 mg/dL (8.5-10.1); Carbon Dioxide 25.7 mMol/L (20.0-31.0); Chloride 106 mMol/L (98-107); Creatinine (Component) 0.6 mg/dL (0.6-1.3); Estimated Creatinine Clearance 136.9 mL/min (>60); Globulin 2.4 gm/dL (2.3-3.5); Glucose 83 mg/dL (74-106); Lipase 53 U/L (12-53); Osmolality,Calculated 278 (275-295); Potassium 4.1 mMol/L (3.4-5.1); Sodium 141 mMol/L (136-145); Total Protein 6.5 gm/dL (5.7-8.2); eGFR > 60 See Note
[2024-12-24 16:08] LABS: Collection Type, Urine Clean Catch
[2024-12-24 16:16] LABS: Bilirubin,Urine Negative (Negative); Blood,Urine Negative (Negative); Color,Urine Yellow (Lt Yel-Yel); Glucose, Urine Negative (Negative); Ketones,Urine Negative (Negative); Leukocyte Esterase,Urine Positive (Negative); Nitrite,Urine Negative (Negative); PH,Urine 6.0 (5.0-7.0); Protein,Urine Trace (Neg - Trace); RBC,Urine 8 /hpf (0-3); Specific Gravity,Urine 1.038 (1.001-1.035); Squamous Epithelial Cell,Urine 18 /hpf (0-5); Urobilinogen,Urine Negative mg/dL (0.0-1.0); WBC,Urine 2 /hpf (0-5)
[2024-12-24 16:32] LABS: HCG Qualitative,Urine Negative
[2024-12-24 16:33] LABS: Clarity,Urine Hazy (Clear/Hazy)
--- NOTE | 2024-12-24 18:34 | PC.NURSE ---
TALKED TO DR. MACE ABOUT SEEING PT. HE SAID HE IS REVIEWING THE PTS IN THE BACK AND SHE IS THE NEXT LOBBY PT HE WILL REVIEW BECAUSE SHE HAS BEEN HERE THE LONGEST. PT INFORMED.
--- NOTE | 2024-12-24 18:35 | EDNOTE_ITS ---
ED Fever RME/HPI General Chief Complaint: Fever Stated Complaint: SIDE/FLANK PAIN, FEVER, N/V X 3 DAYS Time Seen by Provider: 12/24/24 18:26 Arrival date/time: 12/24/24 12:25 RME / HPI RME / HPI Narrative: 12/24/24 12:25 34-year-old female with history of a gastric sleeve presents to the emergency room with a chief complaint of lower abdominal pain, blood in the stool, nausea x 1 week I have greeted and performed a focused initial assessment of this patient. A comprehensive ED assessment and evaluation of the patient, analysis of all test results, and completion of the medical decision making process will be conducted by additional ED providers. See MDM for Dr. Mayfield's HPI documentation. Related Data Previous Rx's ?Medication ?Instructions ?Recorded nitrofurantoin 100 mg PO BID #14 caps 06/02 monohydrate/macrocrystals 100 mg capsule (Macrobid) ibuprofen 800 mg tablet 800 mg PO Q8H PRN pain #20 t abs 09/17/24 ondansetron 4 mg disintegrating 4 mg PO Q8H PRN nausea and 09/17/24 tablet vomiting #20 tabs sulfamethoxazole 800 1 tab PO Q12H #20 tabs 09/17 mg-trimethoprim 160 mg tablet (Bactrim DS) tamsulosin 0.4 mg capsule (Flomax) 0.4 mg PO QDAY #7 c aps 09/17/24 acetaminophen 300 mg-codeine 30 mg 2 tab PO Q8H PRN pa in #10 tabs 12/24/24 tablet famotidine 40 mg tablet 40 mg PO .bedtime #30 tabs 0 12/24/24 omeprazole 40 mg capsule,delayed 40 mg PO QDAY #30 cap s 12/24/24 release ondansetron 4 mg disintegrating 4 mg PO TID PRN nausea and 12/24/24 tablet vomiting 30 days #10 tabs Allergies Allergy/AdvReac Type Severity Reaction Status Date / Time cephalexin Allergy Severe RASH Verified 12/24/24 12:27 Review of Systems Review of Systems Systems Reviewed: All systems reviewed, normal except as documented Past Medical History Past Medical History NEUROLOGIC: Negative Neurological Disorders CARDIAC: Positive Cardiac Disorders and Hypertension; Negative Congestive Heart Failure RESPIRATORY: Positive Asthma and Sleep Apnea; Negative Chronic Obstructive Pulmonary Disease (COPD) GASTROINTESTINAL: Positive Gastrointestinal Disorders and Obesity; Negative Hepatitis or Colorectal Cancer GENITOURINARY: Negative Genitourinary Disorders, Renal Disease or Prostate Cancer REPRODUCTIVE: Negative Breast Cancer or Testicular Cancer MUSCULOSKELETAL: Negative Musculoskeletal Disorders or Bone Cancer ENDOCRINE: Negative Endocrine Disorders, Diabetes Mellitus Type 1 or Diabetes Mellitus Type 2 HEMATOLOGIC: Negative Blood Disorders OTHER HISTORY: Negative Hospitalization, Autoimmune Disease, Down Syndrome, Developmental Delay, Shingles, Falls, Blood Transfusions, Blood Transfusion Reaction, Anesthesia Reactions, Organ Transplant, Chemotherapy, Radiation Therapy, Hyperbaric Therapy, MRSA, VRSA, Vancomycin-Resistant Enterococci, Human Immunodeficiency Virus (HIV), Chicken Pox, Measles, Mumps, Rubella ([place] Measles), Pertussis, Clostridium Difficile, Breast Cancer, Cervical Cancer, Colorectal Cancer, Lung Cancer, Ovarian Cancer, Prostate Cancer or Testicular Cancer Family History FAMILY HISTORY: Positive Family Surgery; Negative Family Cardiac Disorders, Family Cancer or Family Anesthesia Reaction Surgical History SURGICAL: Positive Abdominal Surgery and Section; Negative Organ Transplant Social History SMOKING STATUS: Never smoker SECOND HAND EXPOSURE: No SUBSTANCE USE: does not use Physical Exam Narrative Physical exam: See [facility] for Dr. Mayfield's physical exam documentation. Course Quality Measures none Orders Category Date Time Status Saline [Insert IV] NOW Care 12/24/24 18:[address] abdomen pelvis wo con Stat Exams 12/24/24 13:06 Completed CBC Stat Lab 12/24/24 13:23 Completed CMP [Comprehensive Metabolic Panel] Stat Lab 12/24/24 13:23 Completed HCG Qualitative,Urine Stat Lab 12/24/24 15:43 Completed Lipase Stat Lab 12/24/24 13:23 Completed PT [Prothrombin Time with INR] Stat Lab 12/24/24 13:23 Completed PTT [Partial Thromboplastin Time] Stat Lab 12/24/24 13:23 Completed Type and Screen Stat Lab 12/24/24 13:23 Completed UA [Urinalysis] Stat Lab 12/24/24 15:43 Completed Urine Culture Stat Lab 12/24/24 15:43 Received Famotidine Inj [Pepcid Inj] Med 12/24/24 18:54 Discontinued 20 mg IVP X1 ONE HYDROcodone*/APAP 5/325 [Thornton 5/325] Med 12/24/24 13:07 Discontinued 1 tab PO X1 ONE Ketorolac Inj [Toradol Inj] Med 12/24/24 18:54 Discontinued 30 mg IVP X1 ONE Morphine Inj Med 12/24/24 18:54 Discontinued 4 mg IVP X1 ONE Ondansetron Inj [Zofran Inj] Med 12/24/24 20:01 Discontinued 4 mg .ROUTE .STK-MED ONE Ondansetron Inj [Zofran Inj] Med 12/24/24 18:54 Discontinued 4 mg IVP X1 ONE Ondansetron Odt [Zofran Odt] Med 12/24/24 13:07 Discontinued 4 mg PO X1 ONE Pantoprazole Inj [Protonix Inj] Med 12/24/24 18:54 Discontinued 40 mg IVP X1 ONE Sodium Chloride 0.9% 1000 ml [Ns] 1,000 ml Med 12/24/24 18:54 Discontinued IV 999 mls/hr Vital Signs Vital signs: Vital Signs Temperature 98.6 F 12/24/24 13:04 Pulse Rate 92 12/24/24 13:04 Respiratory Rate 18 12/24/24 13:04 Blood Pressure 125/76 12/24/24 13:04 Pulse Oximetry (%) 95 12/24/24 13:04 Oxygen Delivery Method Room Air 12/24/24 13:04 Fever MDM Narrative MDM Narrative:: This section includes all my notes and documentations, including HPI, PE, and ED course. Chapo Mayfield MD HPI: 34yo female here with abdominal pain for the last 3 days. She has nausea, vomit ing, and decreased appetite. PSH includes cholecystectomy and gastric sleeve 2 years ago. Has trouble localizing the pain. Uncertain about exacerbating factors or relieving factors. No other complaints reported. ROS: All negative except as documented in HPI. Physical Exam: General: Alert and oriented. Appears uncomfortable. Eyes: Conjunctivae and lids clear. ENT: No nasal congestion. Neck: Supple. Heart: RRR. Lungs: No respiratory distress. Good air movement. No rhonchi, wheezing, rales. Abdomen: Soft with upper quadrant tenderness. Normal bowel sounds. No distension. No rebound or guarding. Back: No CVA tenderness. Skin: Warm and dry. Neuro: Alert and oriented X 3. I reviewed all diagnostic test results. My review of the CT abdomen pelvis report is NAD. Blood tests and urine tests are unremarkable. At this point, diagnoses include: 1. Stomach ulcer Treatment here from me included: 1. Pepcid 2. Toradol 3. Morphine 4. Zofran 5. Protonix 6. IV fluid Significant improvement noted. Recommended more outpatient workup. Based on my best medical judgment, made decision no further evaluation or treatment indicated at this time. Patient understands and agrees to the discharge instructions customized and printed, see below. Discharge instructions from Dr. Mayfield: ?After evaluation, your symptoms are due to stomach ulcer (see attached handout). There is no emergency such as appendicitis needing emergent surgery. ?To help heal the ulcer, take Omeprazole 40 mg every morning and Famotidine 40 mg at bedtime for a month. ?Zofran for nausea/vomiting. Clear liquid diet for 24 hours. Then slowly advance diet as tolerated. --Tylenol with codeine for severe pain. ?Avoid food and beverages that can trigger and worsen ulcers. See attached handout. ?See a private doctor on 12/25/2024 for recheck. Ask to review all test results and official radiology reports, to make sure you receive all necessary follow-ups and monitoring. To make sure there is no serious intra-abdominal condition, ask for help with more investigation not available here in the ER. Such as EGD or scoping the stomach, colonoscopy or scoping the colon, and referral to see summer school coordinator. If you want to find a cause/treatment of your abdominal pain, you need to get the studies done. ?Seek immediate medical care with worsening or with any concerns. Chapo Mayfield MD Patient data External records reviewed:: [facility] previous records (Per chart review, patient was seen here on 09/26/24 for abdominal pain.) Clinical information provided by:: patient Social determinants that could affect healthcare access:: none Patient has the following chronic illnesses:: HTN How is presenting disease/condition affected by chronic disease/condition?: uneffected by Evaluation data The following diagnostics were reviewed and interpreted by me:: lab results and radiology exam(s) Lab and/or radiology exams considered but not ordered:: none Interpretation Summary: I reviewed all diagnostic test results. My review of the CT abdomen pelvis report is NAD. Blood tests and urine tests are unremarkable. Medications / Prescriptions Medications or Prescriptions considered but not ordered:: none Medication administrations:: Medication Administration History Discontinued Medications Hydrocodone Bitart/Acetaminophen (Hydrocodone/Apap 5/325 Tablet) 1 tab PO X1 ONE Stop: 12/24/24 13:08 Last Admin: 12/24/24 13:12 Dose: 1 tab Documented By: FLORENCE Famotidine (Famotidine Inj 10 Mg/Ml Vial 2 Ml) 20 mg IVP X1 ONE Stop: 12/24/24 18:55 Last Admin: 12/24/24 20:07 Dose: 20 mg Documented By: ROBB Sodium Chloride (Ns) 1,000 mls @ 999 mls/hr IV .Q1H1M ONE Stop: 12/24/24 19:54 Last Admin: 12/24/24 20:03 Dose: 999 mls/hr Documented By: ROBB Ketorolac Tromethamine (Ketorolac Inj 30 Mg/Ml Vial) 30 mg IVP X1 ONE Stop: 12/24/24 18:55 Last Admin: 12/24/24 20:05 Dose: 30 mg Documented By: ROBB Morphine Sulfate (Morphine Sulf Inj 10 Mg/Ml Vial) 4 mg IVP X1 ONE Stop: 12/24/24 18:55 Last Admin: 12/24/24 20:07 Dose: 4 mg Documented By: ROBB Ondansetron HCl (Ondansetron Odt 4 Mg Tabrap) 4 mg PO X1 ONE; Protocol Stop: 12/24/24 13:08 Last Admin: 12/24/24 13:12 Dose: 4 mg Documented By: FLORENCE Ondansetron HCl (Ondansetron Inj 2 Mg/Ml Inj 2 Ml) 4 mg IVP X1 ONE; Protocol Stop: 12/24/24 18:55 Last Admin: 12/24/24 20:06 Dose: 4 mg Documented By: ROBB Ondansetron HCl (Ondansetron Inj 2 Mg/Ml Inj 2 Ml) Confirm Administered Dose 4 mg .ROUTE .STK-MED ONE Stop: 12/24/24 20:02 Last Admin: 12/24/24 20:10 Dose: Not Given Documented By: ROBB Non-Admin Reason: Other, see note Comments: already given iv Pantoprazole Sodium (Pantoprazole Inj 40 Mg Vial) 40 mg IVP X1 ONE Stop: 12/24/24 18:55 Last Admin: 12/24/24 20:08 Dose: 40 mg Documented By: ROBB Pepcid, Toradol, Morphine, Zofran, Protonix, IV fluid Consultations Consultation(s) initiated? (list below): No Diagnosis Fever Differential Diagnosis: pyelonephritis and other (Biliary colic, gastritis, PUD, GERD, SBO, pancreatitis) Most likely diagnosis given after review of the tests above:: Stomach ulcer Admission Indicated Admission indicated?: not indicated Explain why admission is indicated or not indicated:: With significant improvement and no condition needing emergent intervention, there was no indication for admission. Admission Request Was there a request for admission?: No Disposition Plan Disposition Plan: Discharge Discharge Attestation Discharge Attestation: The patient and all family members were given an opportunity to ask questions and understood the discharge instructions. Discharge instructions specifically effects, indications for sooner follow up or return to the emergency department, and the expected course of current diagnosis. Patient condition: Stable Discharge Plan Plan Patient Disposition: HOME (Self Care) Patient condition on transfer: Stable Prescriptions/Referrals Prescriptions/Med Rec: New famotidine 40 mg tablet 40 mg PO .bedtime Qty: 30 0RF acetaminophen-codeine 300-30 mg tablet 2 tab PO Q8H MDD 6 PRN (Reason: pain) Qty: 10 0RF omeprazole 40 mg capsule,delayed release(DR/EC) 40 mg PO QDAY Qty: 30 0RF ondansetron 4 mg tablet,disintegrating 4 mg PO TID PRN (Reason: nausea and vomiting) 30 Days Qty: 10 0RF No Action nitrofurantoin monohyd/m-cryst [Macrobid] 100 mg capsule 100 mg PO BID Qty: 14 0RF Rx Instructions: must administer with a meal/food sulfamethoxazole-trimethoprim [Bactrim DS] 800-160 mg tablet 1 tab PO Q12H Qty: 20 0RF tamsulosin [Flomax] 0.4 mg capsule 0.4 mg PO QDAY Qty: 7 0RF ibuprofen 800 mg tablet 800 mg PO Q8H PRN (Reason: pain) Qty: 20 0RF ondansetron 4 mg tablet,disintegrating 4 mg PO Q8H PRN (Reason: nausea and vomiting) Qty: 20 0RF Referrals: No Primary/Family,Physician [Primary Care Provider] - In 1 week Problem List Clinical Impression: Stomach ulcer Patient/Caregiver Discharge Instructions Discharge Activity: activity as tolerated Education Materials: ED PEPTIC ULCER vs GASTRITIS Additional Instructions: Discharge instructions from Dr. Mayfield: ?After evaluation, your symptoms are due to stomach ulcer (see attached handout).? There is no emergency such as appendicitis needing emergent surgery. ?To help heal the ulcer, take Omeprazole 40 mg every morning and Famotidine 40 mg at bedtime for a month. ?Zofran for nausea/vomiting.? Clear liquid diet for 24 hours.? Then slowly advance diet as tolerated. --Tylenol with codeine for severe pain. ?Avoid food and beverages that can trigger and worsen ulcers.? See attached handout. ?See a private doctor on 12/25/2024 for recheck. Ask to review all test results and official radiology reports, to make sure you receive all necessary follow-ups and monitoring. To make sure there is no serious intra-abdominal condition, ask for help with more investigation not available here in the ER.? Such as EGD or scoping the stomach, colonoscopy or scoping the colon, and referral to see summer school coordinator. If you want to find a cause/treatment of your abdominal pain, you need to get the studies done. ?Seek immediate medical care with worsening or with any concerns. Print Language: Urdu Stand Alone Forms: Isabel Award Info., Patient Portal Info Letter
[2024-12-24 19:50] VITALS: BP 109/77; PULSE 94; RESP 19; TEMP 36.8; O2SAT 98
[2024-12-24] MEDS: SODIUM CHLORIDE 0.9% 1000 ML 1,000 ML 999 ML IV (20:03)
[2024-12-24 20:05] VITALS: TEMP 36.8
[2024-12-24] MEDS: KETOROLAC INJ 30 MG/ML VIAL IVP (20:05)
[2024-12-24] MEDS: ONDANSETRON INJ 2 MG/ML INJ 2 ML 4 MG IVP (20:06)
[2024-12-24] MEDS: FAMOTIDINE INJ 10 MG/ML VIAL 2 ML 20 MG IVP (20:07)
[2024-12-24] MEDS: MORPHINE SULF INJ 10 MG/ML VIAL 4 MG IVP (20:07)
[2024-12-24 20:54] VITALS: BP 117/80; PULSE 80; RESP 16; TEMP 36.6; O2SAT 99
== END 2024-12-24 20:56 | disposition home or self-care (01) ==
PROVIDERS: Nurse Practitioner Family; Emergency Provider Emergency Medicine
DX: K25.9 Gastric ulcer, unspecified as acute or chronic, without hemorrhage or perforation (principal)
CPT/HCPCS: 36415; 74176; 80053; 81001; 81025; 83690; 85025; 85610; 85730; 86850; 86900; 86901; 87077; 87086; 87186; 96374; 96375; 99284; J1885; J2270; J2405; J2470; J3490; J7030; Q0162; A9270